=== PATIENT | female | born 1990 | race Caucasian/White ===

== ENCOUNTER 2017-02-22 09:14 | Emergency (ER) | payer OTHER, MEDICAID ==
[2017-02-22 09:21] VITALS: BP 132/74
--- NOTE | 2017-02-22 09:39 | UC ---
Respiratory Complaint HPI - HPI Summary HPI Summary: Patient prsents to with CC of cough and sinus congestion x 3 days. She reports her face hurts, and has yellow nasal discharge. Patient is currently 17 weeks , and reports anxiety with taking too many OTC medications for her symptoms. She's taken tylenol with some relief. She denies any fevers/c/s/n/ v or diarrhea. She is a non smoker. PHMx significant for current , hyperemesis gravidarium (not currently). - History of Current Complaint Chief Complaint: UCRespiratory Stated Complaint: SINUS,CONGESTION Time Seen by Provider: 02/22/17 09:37 Hx Obtained From: Patient Hx Last Menstrual Period: september 2016 - Allergies/Home Medications Allergies/Adverse Reactions: Allergies Allergy/AdvReac Type Severity Reaction Status Date / Time Isopropyl Alcohol Allergy Intermediate REDNESS AT Verified 02/22/17 09:21 SITE Sulfa Antibiotics Allergy Unknown Unknown Verified 02/22/17 09:21 Reaction Details Home Medications: Home Medications Acetaminophen [Acetaminophen Extra Stren] 1,000 mg PO ONCE 02/22/17 [History Confirmed 02/22/17] Docosahexaenoic Acid [ Dha] 200 mg PO DAILY 02/22/17 [History Confirmed 02/22/17] PMH/Surg Hx/FS Hx/Imm Hx Previously Healthy: Yes - Surgical History Surgical History: Yes Surgery Procedure, Year, and Place: TONSILLECTOMY - Family History Known Family History: Positive: Cardiac Disease, Hypertension, Diabetes - Social History Alcohol Use: None Substance Use Type: None Substance Use Comment - Amount & Last Used: occasional- last used 1 week ago Smoking Status (MU): Never Smoked Tobacco Have You Smoked in the Last Year: No - Immunization History Most Recent Influenza Vaccination: none Review of Systems All Other Systems Reviewed And Are Negative: Yes Physical Exam Triage Information Reviewed: Yes Appearance: Well-Appearing, Other: - appears congested. Vital Signs: Initial Vital Signs Temp 98 F 02/22/17 09:17 Pulse 89 02/22/17 09:17 Resp 18 02/22/17 09:17 BP 132/74 02/22/17 09:17 Pulse Ox 100 02/22/17 09:17 Vital Signs Reviewed: Yes Eye Exam: Normal Eyes: Positive: Conjunctiva Clear ENT: Positive: Hearing grossly normal, Pharyngeal erythema, Nasal congestion, Nasal drainage, TMs normal, Hoarse voice, Sinus tenderness, Uvula midline. Negative: Tonsillar swelling, Tonsillar exudate, Trismus, Muffled voice Dental Exam: Normal Neck exam: Normal Neck: Positive: Supple, Nontender, No Lymphadenopathy Respiratory Exam: Normal Respiratory: Positive: Chest non-tender, Lungs clear, Normal breath sounds, No respiratory distress Cardiovascular Exam: Normal Cardiovascular: Positive: RRR, No Murmur, Pulses Normal, Brisk Capillary Refill Abdomen Description: Positive: Nontender Bowel Sounds: Positive: Present Skin Exam: Normal UC Diagnostic Evaluation - Laboratory O2 Sat by Pulse Oximetry: 100 Respiratory Course/Dx - Differential Dx/Diagnosis Provider Diagnoses: Viral URI with cough. Post-nasal drip Discharge - Discharge Plan Condition: Stable Disposition: HOME Referrals: TAWANDA Vickers [Medical Doctor] - If Needed Additional Instructions: You have a viral upper respiratory infection. You also have significant post nasal drip. I advise Flonase nasal spray (this can be found over the counter) in addition to daily allergy medication (zyrtec, alvaro) until your symptoms improve. This will help "dry your secretions" which is causing your symptoms. You may take over the counter cough medications if desired. Tylenol is permissible during for additional pain relief and feeling warm/ fevers. Please drink plenty of fluids! Please return if your symptoms don't improve in 7-10 days, or worsen. Follow up with your regular doctor in several days if needed.
== END 2017-02-22 10:07 | disposition home or self-care (01) ==
LOC: UCCORT 09:14
DX: O26.892 Other specified pregnancy related conditions, second trimester (principal); J06.9 Acute upper respiratory infection, unspecified; R05 Cough; R09.82 Postnasal drip; Z3A.17 17 weeks gestation of pregnancy; Z88.2 Allergy status to sulfonamides
CPT/HCPCS: 99211; G0463

== ENCOUNTER 2017-03-23 10:37 | Emergency (ER) | payer OTHER | END 2017-03-23 10:43 | disposition left against medical advice (07) | LOC: UCCORT 10:37 | DX: R05 Cough (principal); R09.89 Other specified symptoms and signs involving the circulatory and respiratory systems; Z53.21 Procedure and treatment not carried out due to patient leaving prior to being seen by health care provider ==